=== PATIENT | male | born 1990 | race Two or more races ===

== ENCOUNTER 2022-09-15 15:28 | Emergency (ER) | payer MEDICAID, OTHER ==
[~2022-09-15] VITALS: Ht 180.3 cm; Wt 140.0 kg
[2022-09-15 15:53] VITALS: BP 152/88
[2022-09-15] MEDS ORDERED: METH750T22 PO (18:14)
[2022-09-15] MEDS ORDERED: IBUP800T27 PO (18:14)
== END 2022-09-15 18:39 | disposition home or self-care (01) ==
LOC: ER 15:28
DX: S29.012A Strain of muscle and tendon of back wall of thorax, initial encounter (principal); X50.9XXA Other and unspecified overexertion or strenuous movements or postures, initial encounter; Y93.89 Activity, other specified; Y92.89 Other specified places as the place of occurrence of the external cause; Y99.8 Other external cause status
CPT/HCPCS: 71046